=== PATIENT | female | born 1990 | race Caucasian/White ===

== ENCOUNTER 2018-08-23 12:01 | Emergency (ER) | payer OTHER ==
[2018-08-23 13:23] VITALS: BP 109/78
--- NOTE | 2018-08-23 14:00 | UC ---
UC General HPI - HPI Summary HPI Summary: PER TRIAGE, Cough for 5 days, sore throat; congestion is moving into chest, yellow sputum. Pt exposed to mold. NO FEVER, SOB OR ASTHMA. - History of Current Complaint Chief Complaint: UCRespiratory Stated Complaint: COUGH Time Seen by Provider: 08/23/18 13:53 Hx Obtained From: Patient Hx Last Menstrual Period: 08/18/18 Onset/Duration: Gradual Onset Timing: Constant Pain Intensity: 6 Associated Signs & Symptoms: Negative: Chest Pain - Allergy/Home Medications Allergies/Adverse Reactions: Allergies Allergy/AdvReac Type Severity Reaction Status Date / Time No Known Allergies Allergy Verified 08/23/18 13:13 Home Medications: Home Medications Cholecalciferol TAB* [Vitamin D TAB*] 1,000 unit PO DAILY 08/23/18 [History Confirmed 08/23/18] Eucalyptus/Menthol [Walsh Cough Drops] 1 erinn MT SEE INSTRUCTIONS 08/23/18 [ History Confirmed 08/23/18] Guaifenesin/Dextromethorphan [Guaifenesin Dm Syrup] 5 ml PO ONCE PRN 08/23/18 [ History Confirmed 08/23/18] Mv-Min/Vit C/Glut/Lysine/Hb124 [Airborne Effervescent Tablet] 1 each PO SEE INSTRUCTIONS PRN 08/23/18 [History Confirmed 08/23/18] PMH/Surg Hx/FS Hx/Imm Hx Previously Healthy: Yes - Surgical History Surgical History: Yes Surgery Procedure, Year, and Place: wisdom teeth - Family History Known Family History: Positive: Non-Contributory - Social History Alcohol Use: Weekly Alcohol Amount: 2 Substance Use Type: Other Substance Use Comment - Amount & Last Used: 3-4 cups coffee daily Smoking Status (MU): Never Smoked Tobacco Review of Systems All Other Systems Reviewed And Are Negative: Yes ENT: Positive: Sore Throat, Sinus Congestion Respiratory: Positive: Cough Physical Exam Triage Information Reviewed: Yes Appearance: Well-Appearing Vital Signs: Initial Vital Signs Temp 98.9 F 08/23/18 13:17 Pulse 98 08/23/18 13:17 Resp 20 08/23/18 13:17 BP 109/78 08/23/18 13:17 Pulse Ox 100 08/23/18 13:17 Vital Signs Reviewed: Yes Eyes: Positive: Conjunctiva Clear ENT: Positive: Pharyngeal erythema, Nasal congestion, TMs normal. Negative: Nasal drainage, Sinus tenderness Neck: Positive: Supple, Nontender, No Lymphadenopathy Respiratory: Positive: Lungs clear, Normal breath sounds, No respiratory distress Cardiovascular: Positive: RRR, No Murmur Abdomen Description: Positive: Nontender Bowel Sounds: Positive: Present Musculoskeletal: Positive: ROM Intact Neurological: Positive: Alert Psychological: Positive: Age Appropriate Behavior Skin Exam: Normal Diagnostics - Laboratory Lab Results: Rapid strep=NEGATIVE Course/Dx - Course Course Of Treatment: PT IS HERE FROM [place] [employer]ING [employer]. - Diagnoses Provider Diagnosis: URI (upper respiratory infection), Bronchitis Discharge - Sign-Out/Discharge Documenting (check all that apply): Patient Departure All imaging exams completed and their final reports reviewed: No Studies - Discharge Plan Condition: Stable Disposition: HOME Patient Education Materials: Upper Respiratory Infection (DC), Acute Bronchitis (ED) Additional Instructions: RETURN IF NOT BETTER IN 7-10 DAYS. - Billing Disposition and Condition Condition: STABLE Disposition: Home
== END 2018-08-23 14:17 | disposition home or self-care (01) ==
LOC: UCCORT 12:01
DX: J06.9 Acute upper respiratory infection, unspecified (principal); J40 Bronchitis, not specified as acute or chronic
CPT/HCPCS: 87651; 99201; G0463